=== PATIENT | male | born 1965 | race Caucasian/White ===

== ENCOUNTER 2017-09-24 11:28 | Emergency (ER) | payer BC ==
[2017-09-24 12:48] VITALS: BP 144/70
--- NOTE | 2017-09-24 12:51 | UC ---
Knee Pain HPI - HPI Summary HPI Summary: 52 yo male presents with left knee pain since last night. He tells me that last night he stepped backward and accidentally stepped onto his dog - pt got startled and tried to avoid the dog. Planted and twisted his left knee. Had immediate pain and was unable to bear weight. He has some crutches at home, which he used to ambulate. Iced the area and took ibuprofen. This morning he was still unable to bear weight, but as the morning went on his symptoms improved and he was able to bear weight with assistance of a cane. Feels very unstable. Denies numbness or tingling. - History of Current Complaint Chief Complaint: UCLowerExtremity Stated Complaint: KNEE (L) COMPLAINT S/P FALL Time Seen by Provider: 09/24/17 12:51 Hx Obtained From: Patient Onset/Duration: Sudden Onset Severity Initially: Moderate Severity Currently: Mild Pain Intensity: 5 Pain Scale Used: 0-10 Numeric Character: Sharp, Aching Aggravating Factor(s): Movement, Weight Bearing Alleviating Factor(s): Rest, Position - Allergies/Home Medications Allergies/Adverse Reactions: Allergies Allergy/AdvReac Type Severity Reaction Status Date / Time No Known Allergies Allergy Verified 09/24/17 12:43 Home Medications: Home Medications Ibuprofen TAB* [Advil TAB*] 600 - 800 mg PO Q6H PRN 09/24/17 [History Confirmed 09/24/17] PMH/Surg Hx/FS Hx/Imm Hx - Additional Past Medical History Additional PMH: None - Surgical History Surgical History: None - Family History Known Family History: Positive: Cardiac Disease - Social History Occupation: Employed Full-time Lives: With Family Alcohol Use: Occasionally Substance Use Type: None Smoking Status (MU): Former Smoker Length of Time of Smoking/Using Tobacco: 1 PPD x 20 Years When Did the Patient Quit Smoking/Using Tobacco: ~2004 Review of Systems Constitutional: Negative Skin: Negative Respiratory: Negative Cardiovascular: Negative Neurovascular: Negative Musculoskeletal: Other: - Left knee pain Neurological: Negative All Other Systems Reviewed And Are Negative: Yes Physical Exam - Summary Physical Exam Summary: GENERAL: NAD. Obese SKIN: No rashes, sores, lesions, or open wounds. NECK: Supple. Nontender. No lymphadenopathy. CHEST: No accessory muscle use. Breathing comfortably and in no distress. CV: RRR. Without m/r/g. Pulses intact popliteal, PT, and DP. Brisk cap refill. MSK: Left knee; Mild TTP laterally and aterolateral. Positive Pedro. FROM. Strength 5/5. No edema or obvious bony deformities. No patella apprehension. Negative Ursula, A/P drawer, and varus/valgus stress. NEURO: Alert. Sensations intact and symmetric B/L LEs PSYCH: Age appropriate behavior. Triage Information Reviewed: Yes Vital Signs: Initial Vital Signs Temp 97.8 F 09/24/17 12:38 Pulse 50 09/24/17 12:38 Resp 16 09/24/17 12:38 BP 144/70 09/24/17 12:38 Pulse Ox 100 09/24/17 12:38 Knee Pain Course/Dx - Course Course Of Treatment: XR: IMPRESSION: Normal knee radiograph as described above. If the patient's symptoms persist, follow-up imaging is recommended. Continue using cane, crutches, knee brace, and RICE as needed. Follow up with orthopedics for suspected meniscus injury. - Differential Dx/Diagnosis Provider Diagnoses: Internal derangement of the left knee Discharge - Sign-Out/Discharge Documenting (check all that apply): Discharge/Admit/Transfer - Discharge Plan Condition: Stable Disposition: HOME Patient Education Materials: Knee Sprain (ED), Meniscus Tear (ED) Referrals: Felipe You [Primary Care Provider] - Roman Logan MD [Medical Doctor] - As Soon As Possible Additional Instructions: If you develop a fever, shortness of breath, chest pain, new or worsening symptoms - please call your PCP or go to the ED. Your blood pressure was high at todays visit. Please see your primary provider within 4 weeks for recheck and re-evaluation 1) Continue to rest, ice, and elevate your knee as much as possible. 2) Use the knee brace and cane as needed for extra support 3) Please call Orthopedics at the number below to schedule a follow up appointment - Billing Disposition and Condition Condition: STABLE Disposition: HOME
--- NOTE | 2017-09-24 13:09 | RAD ---
INDICATION: Left knee pain after a twisting injury the previous day COMPARISON: None TECHNIQUE: 4 view radiograph of the left knee. FINDINGS: The visualized bones are well-corticated and properly aligned. The joint spaces are properly maintained. There is no radiographic evidence of joint effusion. There is no acute fracture, dislocation or other focal bony abnormality. IMPRESSION: Normal knee radiograph as described above. If the patient's symptoms persist, follow-up imaging is recommended.
== END 2017-09-24 13:28 | disposition home or self-care (01) ==
LOC: UCCORT 11:28
DX: M23.92 Unspecified internal derangement of left knee (principal); X50.0XXA Overexertion from strenuous movement or load, initial encounter; Y93.89 Activity, other specified; Y92.009 Unspecified place in unspecified non-institutional (private) residence as the place of occurrence of the external cause; Z87.891 Personal history of nicotine dependence
CPT/HCPCS: 99201; G0463

== ENCOUNTER 2018-04-28 19:54 | Emergency (ER) | payer BC ==
[2018-04-28 20:13] VITALS: BP 118/73
--- NOTE | 2018-04-28 20:49 | ED ---
Throat Pain/Nasal Congestion - HPI Summary HPI Summary: 52 yr old with 4-5 days of pain left forehead, left eyelid, eye, and now rash outbreak over the past couple of days. No Change in vision. Pain comes and goes and is burning. He has had feeling of malaise and tired. Nothing seems to make this better or worse. - History of Current Complaint Chief Complaint: UCSkin Time Seen by Provider: 04/28/18 20:22 - Allergies/Home Medications Allergies/Adverse Reactions: Allergies Allergy/AdvReac Type Severity Reaction Status Date / Time No Known Allergies Allergy Verified 04/28/18 20:08 Home Medications: Home Medications Cetirizine HCl [Zyrtec] 10 mg PO DAILY 04/28/18 [History Confirmed 04/28/18] Losartan Potassium 25 mg PO DAILY 04/28/18 [History Confirmed 04/28/18] guaiFENesin [Mucinex] 600 mg PO DAILY 04/28/18 [History Confirmed 04/28/18] hydroCHLOROthiazide [Hydrochlorothiazide] 25 mg PO DAILY 04/28/18 [History Confirmed 04/28/18] PMH/Surg Hx/FS Hx/Imm Hx Cardiovascular History: Reports: Hx Hypertension Infectious Disease History: No Infectious Disease History: Denies: Traveled Outside the [place] in Last 30 Days - Family History Known Family History: Positive: Cardiac Disease - Social History Alcohol Use: Occasionally Substance Use Type: Reports: None Smoking Status (MU): Former Smoker Length of Time of Smoking/Using Tobacco: 1 PPD x 20 Years Review of Systems Constitutional: Negative Positive: Fatigue Positive: Erythema Positive: Myalgia Positive: Rash All Other Systems Reviewed And Are Negative: Yes Physical Exam Triage Information Reviewed: Yes Vital Signs On Initial Exam: Initial Vitals Temp Pulse Resp BP Pulse Ox 99.1 F 77 17 118/73 98 04/28/18 20:04 04/28/18 20:04 04/28/18 20:04 04/28/18 20:04 04/28/18 20:04 Vital Signs Reviewed: Yes Appearance: Positive: Well-Appearing, No Pain Distress Skin: Positive: Other - red base with vesicles type lesion anterior left scalp, forehead, and left upper eyelids and sclera with erythema. Eyes: Positive: EOMI, JOSHUA, Conjunctiva Inflammed - left eye only. ENT: Positive: Pharynx normal, TMs normal Neck: Positive: Nontender Respiratory/Lung Sounds: Positive: Clear to Auscultation, Breath Sounds Present Cardiovascular: Positive: RRR. Negative: Murmur Abdomen Description: Positive: Other: - obese Musculoskeletal: Positive: Strength/ROM Intact Neurological: Positive: Sensory/Motor Intact, Alert, Oriented to Person Place, Time, CN Intact II-III, Normal Gait, Speech Normal Psychiatric: Positive: Normal - [place] Coma Scale Best Eye Response: 4 - Spontaneous Best Motor Response: 6 - Obeys Commands Best Verbal Response: 5 - Oriented Coma Scale Total: 15 Diagnostics - Vital Signs Vital Signs Temp Pulse Resp BP Pulse Ox 04/28/18 20:04 99.1 F 77 17 118/73 98 - Laboratory Lab Statement: Any lab studies that have been ordered have been reviewed, and results considered in the medical decision making process. EENT Course/Dx - Course Course Of Treatment: 52 yr old with shingles to left V1 distribution. [facility] in [place] called and transfer center notified that patient coming there for optho consult to rule out herpes keratitis. Do not have a slit lamp here, and it is very important medical logistics specialist see him this evening. He feels he can drive. he was offered ambulance but does not want one. His visual acuity with his glasses is fully corrected. 20/15 both eyes, and 20/20 OD, OS. - Diagnoses Provider Diagnoses: Herpes zoster Discharge - Sign-Out/Discharge Documenting (check all that apply): Patient Departure All imaging exams completed and their final reports reviewed: No Studies - Discharge Plan Condition: Good Disposition: HOME-RECOMMEND TO ED Patient Education Materials: Shingles (ED) Referrals: Felipe You [Primary Care Provider] - Additional Instructions: You need to Go to [facility] in [facility] for the eye surgeons to evaluate your eye this evening. Do not delay going. You have been offered ambulance but have chosen to drive yourself. Located in: [facility] Address: [facility] [place] [address] - Billing Disposition and Condition Condition: GOOD Disposition: Home-Recommend to ED
[2018-04-28] MEDS ORDERED: Acyclovir* 200 MG CAP PO ONE (20:55)
== END 2018-04-28 21:02 | disposition home health service (06) ==
LOC: UCCORT 19:54
DX: B02.9 Zoster without complications (principal); I10 Essential (primary) hypertension; Z87.891 Personal history of nicotine dependence
CPT/HCPCS: 99212; A9270-GY; G0463